=== PATIENT | male | born 1965 | race Caucasian/White ===

== ENCOUNTER 2016-10-21 17:03 | Emergency (ER) | payer MEDICARE | END 2016-10-21 19:00 | disposition home or self-care (01) | LOC: ER 17:03 | DX: M54.41 Lumbago with sciatica, right side (principal); E78.5 Hyperlipidemia, unspecified; I10 Essential (primary) hypertension; E10.9 Type 1 diabetes mellitus without complications; Z79.899 Other long term (current) drug therapy | CPT/HCPCS: 96372; J1885 ==